=== PATIENT | female | born 1985 | race Caucasian/White ===

== ENCOUNTER 2021-03-11 02:32 | Emergency (ER) | payer MEDICAID ==
[~2021-03-11] VITALS: Ht 175.3 cm; Wt 88.5 kg
[2021-03-11 02:44] VITALS: BP_SYST 146
[2021-03-11] MEDS ORDERED: KETOROLAC TROMETHAMINE 60 MG/2 ML VIAL IM ONE (03:00)
[2021-03-11] MEDS ORDERED: IBUPROFEN 800 MG TABLET PO ONE (04:00)
[2021-03-11] MEDS ORDERED: IBUP-1970 PO (05:57)
[2021-03-11 06:09] VITALS: BP_SYST 146
== END 2021-03-11 06:09 | disposition home or self-care (01) ==
LOC: SED 02:32
DX: M25.511 Pain in right shoulder (principal); M54.6 Pain in thoracic spine; Z88.5 Allergy status to narcotic agent; Z88.6 Allergy status to analgesic agent; Z79.899 Other long term (current) drug therapy; W01.0XXA Fall on same level from slipping, tripping and stumbling without subsequent striking against object, initial encounter; Y93.89 Activity, other specified; Y92.89 Other specified places as the place of occurrence of the external cause; Y99.8 Other external cause status
CPT/HCPCS: 71045; 72040-TC; 72080-TC; 73010-TC; 73030; 99284

== ENCOUNTER 2022-10-17 08:53 | Emergency (ER) | payer MEDICAID ==
[~2022-10-17] VITALS: Ht 175.3 cm; Wt 111.1 kg
[~2022-10-17 08:53] MED LIST: IBUP-1970 PO
[2022-10-17 08:55] VITALS: BP_SYST 106
[2022-10-17] MEDS ORDERED: NACL 0.9% 1,000 ML IV ONE (09:30)
[2022-10-17] MEDS ORDERED: ONDANSETRON HCL 4 MG/2 ML VIAL IVP ONE ×2 (09:30→11:00)
[2022-10-17] MEDS ORDERED: FAMOTIDINE PF 20 MG/2 ML VIAL IVP ONE (09:30)
[2022-10-17 09:45] LABS: BASOPHILS % (AUTO) 0.3 % (0.0-2.0); EOSINOPHILS % (AUTO) 0.2 % (0.0-4.0); HEMATOCRIT 39.5 % (36-48); HEMOGLOBIN 13.1 g/dL (12.0-16.0); LYMPHOCYTES # (AUTO) 1.6 K/uL (1.0-5.5); LYMPHOCYTES % (AUTO) 15.2 % (20.5-51.5); MEAN CORPUSCULAR HEMOGLOBIN 26 pg (27-31); MEAN CORPUSCULAR HGB CONC 33 % (32-36); MEAN CORPUSCULAR VOLUME 78 fL (79.0-98.0); MONOCYTES # (AUTO) 0.5 K/uL (0.0-1.0); NEUTROPHILS # (AUTO) 8.6 K/uL (1.8-7.7); NEUTROPHILS % (AUTO) 79.3 % (40.0-70.0); PLATELET COUNT (AUTO) 317 K/uL (130-430); RED BLOOD CELL COUNT(AUTO) 5.09 MIL/uL (4.2-6.2); RED CELL DISTRIBUTION WIDTH 15.3 % (9.0-15.0); WHITE BLOOD COUNT (AUTO) 10.8 K/uL (4.8-10.8)
[2022-10-17 10:03] LABS: CALCIUM 9.4 mg/dL (8.4-11.0); CREATININE 0.77 mg/dL (0.55-1.30)
[2022-10-17 10:08] LABS: ALBUMIN 3.7 g/dL (3.4-4.8); TOTAL BILIRUBIN 0.8 mg/dL (0.0-1.0)
[2022-10-17] MEDS ORDERED: KETOROLAC TROMETHAMINE 30 MG VIAL IVP ONE (10:30)
[2022-10-17 11:00] LABS: BILIRUBIN,URINE NEGATIVE (NEGATIVE); BLOOD, URINE NEGATIVE (NEGATIVE); CLARITY/URINE CLEAR (CLEAR); COLOR,URINE YELLOW (YELLOW); GLUCOSE,URINE NEGATIVE (NEGATIVE); KETONES,URINE 1+ (NEGATIVE); LEUKOCYTE ESTERASE ,URINE NEGATIVE (NEGATIVE); NITRITE, URINE NEGATIVE (NEGATIVE); PROTEIN URINE 1+ (NEGATIVE); UROBILINOGEN,URINE 0.2 (0.2-1.0)
[2022-10-17 11:46] LABS: BACTERIA,URINE FEW /HPF (None Seen); MUCUS,URINE 1+ /LPF (None Seen); RBC,URINE 0-3 /HPF (0-3); WBC,URINE 0-3 /HPF (0-3)
[2022-10-17] MEDS ORDERED: DIPHENHYDRAMINE INJ 50 MG/ML VIAL IVP ONE (12:30)
[2022-10-17] MEDS ORDERED: METOCLOPRAMIDE HCL 10 MG/2 ML VIAL IVP ONE (12:30)
[2022-10-17] MEDS ORDERED: ONDA-8 TL (12:55)
[2022-10-17] MEDS ORDERED: IBUP-1969 PO (12:55)
[2022-10-17] MEDS ORDERED: DICY10SO PO (12:55)
[2022-10-17] MEDS ORDERED: PEPTAB PO (13:07)
[2022-10-17 13:26] VITALS: BP_SYST 112
[2022-10-18 00:40] LABS: BARBITURATE, URINE NEGATIVE (NEG <=200); URINE AMPHETAMINE NEGATIVE (NEG <=500)
[2022-10-18 00:41] LABS: BENZODIAZEPINE, URINE NEGATIVE (NEG <=150); CANNABINOID, URINE NEGATIVE (NEG <=50); COCAINE, URINE NEGATIVE (NEG <=150); OPIATE, URINE NEGATIVE (NEG <=100); PHENCYCLIDINE SCREEN,URINE NEGATIVE (NEG <=25)
== END 2022-10-17 13:26 | disposition home or self-care (01) ==
LOC: SED 08:53
DX: R10.31 Right lower quadrant pain (principal); R11.2 Nausea with vomiting, unspecified; F11.20 Opioid dependence, uncomplicated; F15.10 Other stimulant abuse, uncomplicated; Z88.5 Allergy status to narcotic agent; Z88.6 Allergy status to analgesic agent; Z79.899 Other long term (current) drug therapy
CPT/HCPCS: 99285; 74176; 96374; 96375; 71045; 96361; 80307; 80053; 83690; 85025; 87040; 87086; 36415; 76376; 96376; 81025; 83605; 81000; J1200; J3490; J1885; J2765; J2405; J7030

== ENCOUNTER 2022-11-20 10:11 | Emergency (ER) | payer MEDICAID ==
[~2022-11-20] VITALS: Ht 175.3 cm; Wt 113.4 kg
[~2022-11-20 10:11] MED LIST changes: +DICY10SO PO; +IBUP-1969 PO; +ONDA-8 TL; +PEPTAB PO
[2022-11-20 10:22] VITALS: BP_SYST 132
--- NOTE | 2022-11-20 10:24 | NUR ---
DR GARNER IN ROOM FOR EXAM
[2022-11-20] MEDS ORDERED: NACL 0.9% 1,000 ML IV ONE (10:30)
[2022-11-20] MEDS ORDERED: ONDANSETRON HCL 4 MG/2 ML VIAL IVP ONE (10:30)
--- NOTE | 2022-11-20 10:30 | NUR ---
PT BIB MOM AWAKE AND ALERT AOX4 NO SOB OR DISTRESS. PT C/O N/V SINCE 2100 LAST NIGHT AFTER INJECTING OZEMPIC FOR WEIGHT LOSS. PT DENIES HX. SX OF [place]
--- NOTE | 2022-11-20 10:31 | NUR ---
MD DR GARNER AT BEDSIDE
[2022-11-20 10:45] LABS: BASOPHILS # (AUTO) 0.1 K/uL (0.0-0.2); BASOPHILS % (AUTO) 0.6 % (0.0-2.0); EOSINOPHILS % (AUTO) 0.1 % (0.0-4.0); HEMATOCRIT 37.6 % (36-48); HEMOGLOBIN 12.5 g/dL (12.0-16.0); LYMPHOCYTES # (AUTO) 1.3 K/uL (1.0-5.5); MEAN CORPUSCULAR HEMOGLOBIN 26 pg (27-31); MEAN CORPUSCULAR HGB CONC 33 % (32-36); MEAN CORPUSCULAR VOLUME 79 fL (79.0-98.0); MONOCYTES # (AUTO) 0.4 K/uL (0.0-1.0); MONOCYTES % (AUTO) 3.7 % (1.7-9.3); NEUTROPHILS # (AUTO) 9.3 K/uL (1.8-7.7); NEUTROPHILS % (AUTO) 83.6 % (40.0-70.0); PLATELET COUNT (AUTO) 288 K/uL (130-430); RED BLOOD CELL COUNT(AUTO) 4.79 MIL/uL (4.2-6.2); RED CELL DISTRIBUTION WIDTH 14.9 % (9.0-15.0); WHITE BLOOD COUNT (AUTO) 11.1 K/uL (4.8-10.8)
[2022-11-20 11:26] LABS: CALCIUM 8.8 mg/dL (8.4-11.0); CREATININE 0.62 mg/dL (0.55-1.30)
[2022-11-20 11:31] LABS: ALBUMIN 3.6 g/dL (3.4-4.8); TOTAL BILIRUBIN 0.9 mg/dL (0.0-1.0)
[2022-11-20] MEDS ORDERED: ONDA-8 TL (11:38)
[2022-11-20 11:53] VITALS: BP_SYST 135
--- NOTE | 2022-11-20 11:56 | NUR ---
Patient given written and verbal discharge instructions and verbalizes understanding. ER MD DR GARNER discussed with patient the results and treatment provided. Patient in stable condition. ID arm band removed. IV catheter removed intact and dressing applied, no active bleeding. Rx of ZOFRAN given. Patient educated on pain management and to follow up with PMD. Pain Scale 0/10. Opportunity for questions provided and answered. Medication side effect fact sheet provided.
== END 2022-11-20 11:56 | disposition home or self-care (01) ==
LOC: SED 10:11
DX: R11.2 Nausea with vomiting, unspecified (principal); R10.9 Unspecified abdominal pain; T50.995A Adverse effect of other drugs, medicaments and biological substances, initial encounter; F15.10 Other stimulant abuse, uncomplicated; Z88.5 Allergy status to narcotic agent; Z88.6 Allergy status to analgesic agent; Z79.899 Other long term (current) drug therapy; Y92.89 Other specified places as the place of occurrence of the external cause
CPT/HCPCS: 99283; 96374; 96361; 80053; 83690; 85025; 36415; J2405; J7030

== ENCOUNTER 2023-04-19 11:25 | Emergency (ER) | payer MEDICAID ==
[~2023-04-19] VITALS: Ht 175.3 cm; Wt 113.4 kg
[2023-04-19 11:30] VITALS: BP_SYST 128; PULSE 85; RESP 18; TEMP 97.5; O2SAT 96
[2023-04-19] MEDS ORDERED: ONDANSETRON HCL 4 MG/2 ML VIAL IVP ONE (12:00)
[2023-04-19] MEDS ORDERED: NACL 0.9% 1,000 ML IV ONE (12:00)
[2023-04-19 12:39] LABS: BASOPHILS % (AUTO) 0.5 % (0.0-2.0); EOSINOPHILS # (AUTO) 0.1 K/uL (0.0-0.4); EOSINOPHILS % (AUTO) 0.9 % (0.0-4.0); HEMATOCRIT 37.1 % (36-48); HEMOGLOBIN 11.9 g/dL (12.0-16.0); LYMPHOCYTES # (AUTO) 1.7 K/uL (1.0-5.5); LYMPHOCYTES % (AUTO) 27.9 % (20.5-51.5); MEAN CORPUSCULAR HEMOGLOBIN 24 pg (27-31); MEAN CORPUSCULAR HGB CONC 32 % (32-36); MEAN CORPUSCULAR VOLUME 75 fL (79.0-98.0); MONOCYTES # (AUTO) 0.6 K/uL (0.0-1.0); MONOCYTES % (AUTO) 10.7 % (1.7-9.3); NEUTROPHILS # (AUTO) 3.6 K/uL (1.8-7.7); PLATELET COUNT (AUTO) 301 K/uL (130-430); RED BLOOD CELL COUNT(AUTO) 4.95 MIL/uL (4.2-6.2); RED CELL DISTRIBUTION WIDTH 14.3 % (9.0-15.0); WHITE BLOOD COUNT (AUTO) 6.1 K/uL (4.8-10.8)
[2023-04-19 12:57] LABS: CALCIUM 8.7 mg/dL (8.4-11.0); CREATININE 0.69 mg/dL (0.55-1.30); POTASSIUM 3.2 mmol/L (3.5-5.1)
[2023-04-19 13:01] LABS: BILIRUBIN,DIRECT 0.1 mg/dL (0.0-0.3); TOTAL BILIRUBIN 0.3 mg/dL (0.0-1.0); TOTAL PROTEIN, SERUM 7.2 g/dL (6.4-8.3)
[2023-04-19] MEDS ORDERED: ONDA-8 TL (14:50)
[2023-04-19] MEDS ORDERED: IBUP-1969 PO (14:50)
[2023-04-19 15:09] VITALS: BP_SYST 128; PULSE 85; RESP 18; TEMP 97.5; O2SAT 96
== END 2023-04-19 15:08 | disposition home or self-care (01) ==
LOC: SED 11:25
DX: K52.9 Noninfective gastroenteritis and colitis, unspecified (principal); R10.32 Left lower quadrant pain; R11.10 Vomiting, unspecified; Z88.5 Allergy status to narcotic agent; Z88.6 Allergy status to analgesic agent; Z79.899 Other long term (current) drug therapy
CPT/HCPCS: 99285; 74176; 96374; 96361; 80076; 80048; 83690; 85025; 36415; 76376; 81025; J2405; J7030

== ENCOUNTER 2024-02-02 16:24 | Emergency (ER) | payer OTHER, MEDICAID ==
[~2024-02-02] VITALS: Ht 175.3 cm; Wt 113.4 kg
[2024-02-02 16:33] VITALS: BP_SYST 127; PULSE 97; RESP 17; TEMP 98.4; O2SAT 97
[2024-02-02] MEDS: KETOROLAC TROMETHAMINE 60 MG/2 ML VIAL IM ONE (18:22)
[2024-02-02 18:49] LABS: BILIRUBIN,URINE NEGATIVE (NEGATIVE); BLOOD, URINE 1+ (NEGATIVE); CLARITY/URINE CLOUDY (CLEAR); COLOR,URINE YELLOW (YELLOW); GLUCOSE,URINE NEGATIVE (NEGATIVE); KETONES,URINE NEGATIVE (NEGATIVE); LEUKOCYTE ESTERASE ,URINE NEGATIVE (NEGATIVE); NITRITE, URINE NEGATIVE (NEGATIVE); PROTEIN URINE NEGATIVE (NEGATIVE); UROBILINOGEN,URINE 0.2 (0.2-1.0)
[2024-02-02 19:11] LABS: BACTERIA,URINE MANY /HPF (None Seen); MUCUS,URINE 3+ /LPF (None Seen)
[2024-02-02] MEDS ORDERED: IBUP-1969 PO (19:42)
[2024-02-02] MEDS ORDERED: DICL20GE TP (19:42)
[2024-02-02] MEDS ORDERED: NITR-85 PO (19:42)
[2024-02-02] MEDS: NITROFURANTOIN MONOHYD/M-CRYST 100 MG CAPSULE (MacroBID) PO ONE (19:43)
[2024-02-02 20:10] VITALS: BP_SYST 124; PULSE 89; RESP 18; TEMP 98.2; O2SAT 97
== END 2024-02-02 20:10 | disposition home or self-care (01) ==
LOC: SED 16:24
DX: S93.491A Sprain of other ligament of right ankle, initial encounter (principal); S63.591A Other specified sprain of right wrist, initial encounter; N39.0 Urinary tract infection, site not specified; M25.562 Pain in left knee; M54.50 Low back pain, unspecified; Z88.5 Allergy status to narcotic agent; Z88.6 Allergy status to analgesic agent; Z79.899 Other long term (current) drug therapy; Z79.2 Long term (current) use of antibiotics; W18.39XA Other fall on same level, initial encounter; Y93.89 Activity, other specified; Y92.89 Other specified places as the place of occurrence of the external cause; Y99.8 Other external cause status
CPT/HCPCS: 99284; 81001; 87086; 72100; 73080; 73110; 73564; 73610; 81025; 29125; 96372; J1885; 81000; 81015